=== PATIENT | male | born 1970 | race Caucasian/White ===

== ENCOUNTER → 2020-05-11 12:07 | Outpatient (BNVA) | payer BC, SELFPAY | PROVIDERS: Family Provider Nurse Practitioner Family; Visit Provider Nurse Practitioner Family | DX: Z11.59 Encounter for screening for other viral diseases (principal); Z20.828 Contact with and (suspected) exposure to other viral communicable diseases; J06.9 Acute upper respiratory infection, unspecified | CPT/HCPCS: 87635 ==

== ENCOUNTER 2021-03-04 03:44 | Emergency (ER) | payer BC, SELFPAY ==
[2021-03-04 03:45] VITALS: BP 196/96; PULSE 76; RESP 20; TEMP 36.8; O2SAT 95; BMI 39.4
--- NOTE | 2021-03-04 04:02 | CTR_ITS ---
PROCEDURE INFORMATION: Exam: CT Abdomen And Pelvis Without Contrast Exam date and time: 03/04/2021 4:02 AM Age: 50 years old Clinical indication: Abdominal pain; Right; Patient HX: Sudden onset of severe RT flank pain with nausea this a. M. ; Additional info: R flank pain TECHNIQUE: Imaging protocol: Computed tomography of the abdomen and pelvis without contrast. Radiation optimization: All CT scans at this facility use at least one of these dose optimization techniques: automated exposure control; mA and/or kV adjustment per patient size (includes targeted exams where dose is matched to clinical indication); or iterative reconstruction. COMPARISON: [place] Chest 1 [place] [id number] 05/23/2018 2:38 AM RADIATION DOSE METRICS: Total DLP (mGy-cm): 1955.95 FINDINGS: Lungs: The lung bases are clear. No effusion Liver: Normal. No mass. Gallbladder and bile ducts: No wall thickening, pericholecystic fluid or stones. Pancreas: Normal. No ductal dilation. Spleen: Normal. No splenomegaly. Adrenal glands: Normal. No mass. Kidneys and ureters: Normal. No hydronephrosis. Stomach and bowel: Unremarkable. No obstruction. No mucosal thickening. Appendix: No evidence of appendicitis. Intraperitoneal space: Unremarkable. No free air. No significant fluid collection. Vasculature: Unremarkable. No abdominal aortic aneurysm. Lymph nodes: Unremarkable. No enlarged lymph nodes. Urinary bladder: Unremarkable as visualized. Reproductive: Unremarkable as visualized. Bones/joints: Unremarkable. No acute fracture. Soft tissues: Unremarkable. CT/CT kidney stone [id number] IMPRESSION: No cause for acute pain is identified. Radiation Dose CTDIVOL = (mGy): DLP = 1955.95 (mGy-cm)
[2021-03-04 04:03] LABS: Add Urine Microscopic? NO; Charge for UA Resulting for Rev
[2021-03-04 04:06] LABS: Bilirubin Urine Neg (Negative); Blood Urine Neg (Negative); Glucose Urine UA Norm (Normal); Ketones Urine Negative (Negative); Leukocyte Esterase Urine Negative (Negative); Nitrate Urine Negative (Negative); Protein Urine Neg (Negative); Specific Gravity, Urine 1.005 (1.005-1.030); Urine Appearance Clear (CLEAR); Urine Color Yellow (Yellow); Urobilinogen Urine Norm (Negative); pH Urine 6.5 (5-7)
[2021-03-04 04:19] LABS: Basophils % 0.5 %; Eosinophils # 0.1 10^3/uL (0.0-0.8); Eosinophils % 1.6 %; Hematocrit 40.5 % (42.0-52.0); Hemoglobin 14.2 g/dL (11.7-16.6); Lymphocytes # 1.6 10^3/uL (0.8-4.8); Lymphocytes % 18.2 %; Mean Corpuscular HGB Conc 35.1 g/dL (30.0-36.0); Mean Corpuscular Hemoglobin 30.1 pg (28.0-34.0); Mean Corpuscular Volume 85.8 fl (80-94); Mean Platelet Volume 10.1 fL (7.4-10.4); Monocytes # 0.7 10^3/uL (0.2-0.9); Monocytes % 7.3 %; Neutrophils # 6.37 10^3/uL (1.8-7.7); Neutrophils % 71.8 %; Nucleated Red Blood Cells % 0 %; Platelet Count 167 10^3/cmm (130-400); Red Blood Count 4.72 10^6/uL (4.1-5.3); White Blood Count 8.9 10^3/uL (4.0-10.0)
[2021-03-04] MEDS: sodium chloride 0.9% 1,000 ML 999 ML IV (04:21)
[2021-03-04] MEDS: ondansetron 2 mg/ML SDV 2 mL 4 MG IVP (04:22)
--- NOTE | 2021-03-04 04:26 | W.ED.BACK ---
HPI - Back Pain/Injury General: Chief Complaint: Back Pain/Injury Stated Complaint: BACK PAIN Time Seen by Provider: 03/04/21 03:54 History of Present Illness: HPI Narrative: 50-year-old male woke to urinate this morning, and upon returning to bed, had a sudden onset of right-sided flank pain and back pain. He notes the pain does not radiate. He got nauseated with the pain. Pain improved after dialing 911 administration of IV pain medication on the way here. No fever. No history of hematuria. No history of kidney stones. He states his belly is nontender. MD elicited complaint: back pain Onset (ago): hour(s) Timing: constant Severity: severe Similar Symptoms Previously: No Quality: sharp Location: lumbar spine and right flank Radiation: none Exacerbating factors: movement Relieving factors: none Context: other Associated symptoms: Reports nausea; Deny abdominal pain, chills, change in bowel habits, dysuria, fever(s) or weakness Review of Systems Const: Denies: fever(s) or chills Card: Denies: chest pain Resp: Denies: dyspnea GI: Reports: nausea; Denies: abdominal pain or change in bowel habits : Denies: dysuria Physical Exam Const: GENERAL APPEARANCE: cooperative; not ill appearing Chest: COMMONS NORMALS: normal inspection of the chest Resp: COMMON NORMALS: normal respiratory effort, No use of accessory muscles and clear to auscultation bilaterally AUSCULTATION: clear to auscultation bilaterally Cardio: COMMON NORMALS: regular rate and regular rhythm RATE: regular rate RHYTHM: regular rhythm GI: COMMON NORMALS: Normal to inspection, nondistended, normoactive bowel sounds present, Soft to palpation and non-tender PALPATION: Yes Soft to palpation : COMMON NORMALS: No no CVA tenderness BLADDER/KIDNEY EXAM: No no CVA tenderness Back/Pelvis: COMMON NORMALS: thoracic and lumbar spine normal to inspection and no thoracic nor lumbar tenderness; negative for no CVA tenderness Neuro: ANTOINE COMA SCALE: document GCS findings Antoine coma scale eye opening: Spontaneous [place] coma scale verbal response: Orientated [place] coma scale motor response: Obey commands Antoine coma scale total score: 15 Course Vital Signs: Vital signs: Vital Signs Temperature 98.2 F 03/04/21 03:45 Pulse Rate 76 03/04/21 03:45 Respiratory Rate 20 H 03/04/21 03:45 Blood Pressure 196/96 03/04/21 03:45 Pulse Oximetry 95 03/04/21 03:45 MDM - Back Pain/Injury MDM Narrative: Medical decision making narrative: Labs are not remarkable. Urinalysis shows no hematuria or signs of infection. Awaiting CT scan. CT scan negative for stone or other pathology. He will be discharged home Lab Data: Labs: Lab Results 03/04/21 03/04/21 03/04/21 Range/Units 03:55 04:12 04:12 WBC 8.9 (4.0-10.0) 10^3/ uL RBC 4.72 (4.1-5.3) 10^6/u L Hgb 14.2 (11.7-16.6) g/dL Hct 40.5 L (42.0-52.0) % MCV 85.8 (80-94) fl MCH 30.1 (28.0-34.0) pg MCHC 35.1 (30.0-36.0) g/dL RDW 14.0 (12.1-15.1) % Plt Count 167 (130-400) 10^3/c mm MPV 10.1 (7.4-10.4) fL Neut % (Auto) 71.8 % Lymph % (Auto) 18.2 % [place] % (Auto) 7.3 % Eos % (Auto) 1.6 % Baso % (Auto) 0.5 % Neut # (Auto) 6.37 (1.8-7.7) 10^3/u L Lymph # (Auto) 1.6 (0.8-4.8) 10^3/u L [place] # (Auto) 0.7 (0.2-0.9) 10^3/u L Eos # (Auto) 0.1 (0.0-0.8) 10^3/u L Baso # (Auto) 0.0 (0.0-0.1) 10^3/u L Nucleated RBC % (a uto) 0 % Nucleated RBCs # 0.0 /100WBC Sodium 138 (136-145) mmol/L Potassium 3.5 (3.5-5.1) mmol/L Chloride 102 (98-107) mmol/L Carbon Dioxide 26 (22-29) mmol/L Anion Gap 13.5 (5-19) BUN 14 (6-20) mg/dL Creatinine 0.7 (0.7-1.2) mg/dL GFR Calculation 119.4 (90-130) mL/min Glucose 146 H (65-115) mg/dL Calculated Osmolal ity 289 (285-295) mOsm/k g Calcium 9.1 (8.5-10.5) mg/dL Total Bilirubin 1.0 (0.15-1.2) mg/dL AST 18 (0-40) U/L ALT 27 (0-41) U/L Alkaline Phosphata se 73 (40-130) IU/L C-Reactive Protein 2.9 (0.0-4.9) mg/L Total Protein 6.9 (6.6-8.7) g/dL Albumin 4.2 (3.5-5.2) g/dL Globulin 2.7 (1.3-4.6) g/dL Urine Color Yellow (Yellow) Urine Appearance Clear (CLEAR) Urine pH 6.5 (5-7) Ur Specific Gravit y 1.005 (1.005-1.030) Urine Protein Neg (Negative) Urine Glucose (UA) Norm (Normal) Urine Ketones Negative (Negative) Urine Blood Neg (Negative) Urine Nitrate Negative (Negative) Urine Bilirubin Neg (Negative) Urine Urobilinogen Norm (Negative) mg/dL Ur Leukocyte Jenny ase Negative (Negative) Discharge Plan Discharge Patient Disposition: Home Clinical Impression: Strain of lumbar region Qualifiers: Encounter type: initial encounter Qualified Code(s): S39.012A - Strain of muscle, fascia and tendon of lower back, initial encounter Condition: Stable Prescriptions: New hydrocodone-acetaminophen 5-325 mg tablet 1 tab PO Q8H PRN (Reason: pain) Qty: 7 RF: 0 ketorolac 10 mg tablet 10 mg PO TID PRN (Reason: pain) Qty: 10 RF: 0 tizanidine 6 mg capsule 6 mg PO Q8H PRN (Reason: muscle spasticity) Qty: 10 RF: 0 Discharge Orders: Discharge ED (Routine); Ordered 03/04/21 Ordered By: Donnie Johnston Referrals: Painting,Danya, [facility] [Primary Care Provider] - Patient Instructions: Low Back Strain (ED), Opioid Safety Activity Restrictions/Additional Instructions: Return to the emergency department for fever greater than 100, change in urine, abdominal pain, vomiting liquids or medications, blood in the stool, any other concerning symptoms. Coding Level of Care Code ED Personal Financial Advisor for Chg Fwd Exam Comprehensive
[2021-03-04] MEDS: HYDROmorphone 1 mg/mL INJ 1 mL IVP (04:27)
[2021-03-04 04:37] LABS: Alanine Aminotransferase 27 U/L (0-41); Albumin Level 4.2 g/dL (3.5-5.2); Alkaline Phosphatase 73 IU/L (40-130); Aspartate Amino Transferase 18 U/L (0-40); Blood Urea Nitrogen 14 mg/dL (6-20); C Reactive Protein 2.9 mg/L (0.0-4.9); Calcium 9.1 mg/dL (8.5-10.5); Carbon Dioxide 26 mmol/L (22-29); Chloride 102 mmol/L (98-107); Globulin 2.7 g/dL (1.3-4.6); Glomerular Filtration Rate 119.4 mL/min (90-130); Glucose 146 mg/dL (65-115); Osmolality Calculated 289 mOsm/kg (285-295); Sodium 138 mmol/L (136-145); Total Protein 6.9 g/dL (6.6-8.7)
[2021-03-04 04:38] LABS: Anion Gap 13.5 (5-19); Potassium 3.5 mmol/L (3.5-5.1)
[2021-03-04] MEDS: ketorolac 30 mg/mL INJ 15 MG IVP (06:11)
[2021-03-04 06:24] VITALS: BP 165/102; PULSE 60; RESP 18; O2SAT 98
== END 2021-03-04 06:26 | disposition home or self-care (01) ==
PROVIDERS: Emergency Provider Emergency Medicine; PCP Nurse Practitioner Family
DX: S39.012A Strain of muscle, fascia and tendon of lower back, initial encounter (principal); X58.XXXA Exposure to other specified factors, initial encounter
CPT/HCPCS: 74176; 80053; 81003; 85025; 86140; 96361; 96374; 96375; 99284; J1170; J1885; J2405; J7030

== ENCOUNTER → 2021-03-09 12:14 | Outpatient (BNVA) | payer BC, SELFPAY | PROVIDERS: PCP Nurse Practitioner Family; Visit Provider Internal Medicine Cardiovascular Disease | DX: I10 Essential (primary) hypertension (principal); I50.33 Acute on chronic diastolic (congestive) heart failure; R06.02 Shortness of breath; R06.00 Dyspnea, unspecified; R94.39 Abnormal result of other cardiovascular function study | CPT/HCPCS: 80048; 83880 ==

== ENCOUNTER 2021-07-06 12:56 | Outpatient (CLI) | payer BC, SELFPAY ==
--- NOTE | 2021-07-06 12:45 | USCV_ITS ---
Annetta Bruce Age: 50 Gender: M : 1970 Exam Date: 07/06/2021 13:10 Ordering Phys: Natalie Mon MD ([email or web address]) Technologist: CHUCKIE Exam Location: [facility] [place] Indication: s/p COVID April 2020, with fatigue and DAVIDSON ever since, worsening in the last 3-4 weeks. No hx cardiac intervention. BP: / HR: 66 Rhythm: Sinus Technical Quality: Adequate MEASUREMENTS (Male / Female) Normal Values 2D ECHO LV Diastolic Diameter PLAX 4.5 cm 4.2 - 5.9 / 3.9 - 5.3 cm LV Systolic Diameter PLAX 3.0 cm IVS Diastolic Thickness 1.5 cm 0.6 - 1.0 / 0.6 - 0.9 cm IVS Systolic Thickness 2.0 cm LVPW Diastolic Thickness 1.6 cm 0.6 - 1.0 / 0.6 - 0.9 cm LVPW Systolic Thickness 2.0 cm LVOT Diameter 2.0 cm LV Ejection Fraction 2D Teich 62.8 % LV Ejection Fraction MOD 2C 71.3 % LV Ejection Fraction 2C AL 70.9 % LA Diameter 4.4 cm LA Width 4.7 cm LA Height 4.7 cm RA Width 4.4 cm RA Height 4.7 cm Aorta at Sinotubular Diameter 2.7 cm M-MODE Aortic Annulus Diameter 3.1 cm LA Ao Ratio MM 1.5 MV E Point Septal Separation 0.3 cm DOPPLER AV Peak Velocity 178.0 cm/s LVOT Peak Velocity 108.0 cm/s AV Area Cont Eq vti 2.0 cm squared AV Area Cont Eq pk 2.0 cm squared MV Peak Velocity 119.0 cm/s MV Area PHT 2.4 cm squared Mitral E to A Ratio 1.0 MV E' Velocity 55.5 cm/s Mitral E to MV E' Ratio 10.7 Mitral E to LV E' Lateral Ratio 10.1 Mitral E to LV E' Septal Ratio 11.4 TR Peak Velocity 215.0 cm/s TR Peak Gradient 18.5 mmHg Right Atrial Pressure 5.0 mmHg Pulmonary Artery Systolic Pressu 23.5 mmHg PV Peak Velocity 141.0 cm/s RV Acceleration Time 0.1 s RV Ejection Time 0.4 s RV AcT/ET 0.2 FINDINGS Left Ventricle Normal left ventricular size and systolic function, EF 69 %. Regional wall motion abnormalities (see diagram). Right Ventricle The right ventricle is normal in size and function. Right Atrium The right atrium is normal in size. Left Atrium The left atrium is normal in size. Mitral Valve Mild mitral valve regurgitation. Aortic Valve No gross abnormalities noted Tricuspid Valve Trace tricuspid valve regurgitation. Pulmonic Valve Mild pulmonary valve regurgitation. Pericardium Normal pericardium without effusion. Aorta Normal ascending aorta dimension. CONCLUSIONS Normal left ventricular size and systolic function, EF 69 %. Regional wall motion abnormalities (see diagram). Mild mitral valve regurgitation. Trace tricuspid valve regurgitation. Mild pulmonary valve regurgitation. Estimated pulmonary artery peak systolic pressure 24 mm of Hg. There is no pericardial effusion. There are no intracardiac masses. Compared to the previous study from 05/23/2018, there may not be a significant change Dr Natalie Mon MD FAC (Electronically Signed) Final Date: 08 July 2021 15:48 S
== END 2021-07-06 12:57 | disposition home or self-care (01) ==
LOC: RAD 13:00
PROVIDERS: PCP Nurse Practitioner Family; Visit Provider Internal Medicine Cardiovascular Disease
DX: R06.00 Dyspnea, unspecified (principal); R06.02 Shortness of breath; Z86.16 Personal history of COVID-19; I08.1 Rheumatic disorders of both mitral and tricuspid valves
CPT/HCPCS: 93306

== ENCOUNTER → 2023-01-09 11:13 | Outpatient (BNVA) | payer SELFPAY | PROVIDERS: PCP Nurse Practitioner Family; Visit Provider Nurse Practitioner Family | DX: R50.9 Fever, unspecified (principal) | CPT/HCPCS: 87400; 87426 ==